=== PATIENT | male | born 2000 | race Two or more races ===

== ENCOUNTER 2024-02-20 19:54 | Inpatient (IN) | payer OTHER ==
[2024-02-20 20:39] VITALS: BMI 31.9
[2024-02-20] MEDS ORDERED: NALOXONE (NARCAN) HCL 4 MG/0.1 ML SPRAY NS PRN (21:31)
[2024-02-20] MEDS ORDERED: BENZOCAINE/MENTHOL (CHLORASEPTIC ) LOZENGE MM PRN (21:31)
[2024-02-20] MEDS ORDERED: BENZONATATE 200 MG CAPSULE PO PRN (21:31)
[2024-02-20] MEDS ORDERED: MAGNESIUM HYDROX 2400MG/30ML ORAL SUSPENSION 30 ML CUP PO PRN (21:31)
[2024-02-20] MEDS ORDERED: MAG HYDROX/AL HYDROX/SIMETH 30 ML UNIT-DOSE CUP PO PRN (21:31)
[2024-02-20] MEDS ORDERED: guaiFENesin 600 MG TABLET.ER (FP) PO PRN (21:31)
[2024-02-20] MEDS ORDERED: ACETAMINOPHEN 325 MG TABLET (FP) PO PRN (21:31)
[2024-02-20] MEDS ORDERED: LOPERAMIDE HCL 2 MG CAPSULE PO PRN (21:31)
[2024-02-20] MEDS ORDERED: IBUPROFEN 400 MG TABLET (FP) PO PRN (21:31)
[2024-02-20] MEDS ORDERED: NALOXONE HCL 0.4 MG/ML VIAL IM PRN (21:31)
[2024-02-20] MEDS ORDERED: POLYETHYLENE GLYCOL (HEALTHYLAX) 3350 17 GM PACKET PO PRN (21:31)
[2024-02-20] MEDS ORDERED: MELATONIN 5 MG TABLETS ONE (22:13)
[2024-02-20] MEDS: MELATONIN 5 MG TABLETS PO SCH (22:14)
[2024-02-20] MEDS: THIAMINE 100 MG TABLET PO SCH (22:14)
[2024-02-20] MEDS ORDERED: hydrOXYzine PAMOATE 25 MG CAPSULE (FP) PO ONE (22:14)
[2024-02-20] MEDS: hydrOXYzine PAMOATE 25 MG CAPSULE (FP) PO PRN (22:15)
[2024-02-21] MEDS ORDERED: TUBERCULIN PPD 5 TU/0.1ML SYRINGE (IN PATIENT USE ONLY) ID ONE (01:33)
[2024-02-21] MEDS ORDERED: TUBERCULIN PPD 5 TU/0.1ML VIAL ID ONE (09:01)
[2024-02-21] MEDS: PRENATAL VITAMINS W/ FOLIC ACID TABLET (FP) PO SCH (10:14)
[2024-02-21] MEDS: TUBERCULIN PPD 5 TU/0.1ML SYRINGE (IN PATIENT USE ONLY) ID ONE (10:14)
[2024-02-21] MEDS: NICOTINE 14 MG/24 HOURS TOPICAL PATCH TD SCH (10:14)
[2024-02-21 12:21] LABS: HEMATOCRIT 45.3 % (35.4-49); HEMOGLOBIN 14.5 GM/dL (11.7-16.9); MCH 27.3 pg (25.7-33.7); MEAN CELL VOLUME 85.2 fl (80-96); MEAN PLT VOLUME 9.9 fl (7.5-11.1); PLATELET COUNT 172 10^3/uL (134-434); RBC 5.32 M/mm3 (4.00-5.60); RDW 14.7 % (11.9-15.9); WHITE BLOOD COUNT 6.9 K/mm3 (4.0-10.0)
[2024-02-21 12:25] LABS: POTASSIUM 3.9 mmol/L (3.5-5.1)
[2024-02-21 12:31] LABS: ALBUMIN 3.8 g/dl (3.4-5.0); CALCIUM 9.6 mg/dL (8.5-10.1)
[2024-02-21 12:33] LABS: CREATININE 1.1 mg/dL (0.55-1.3)
[2024-02-21 12:34] LABS: BLOOD UREA NITROGEN 8.6 mg/dL (7-18)
[2024-02-21 12:36] LABS: BILIRUBIN,TOTAL 0.8 mg/dL (0.2-1)
[2024-02-21] MEDS: NICOTINE POLACRILEX 2 MG GUM BUC PRN (12:46)
[2024-02-22] MEDS: ZIPRASIDONE 20 MG CAPSULE PO SCH (00:07)
[2024-02-22] MEDS: TOPIRAMATE 25 MG TABLET PO SCH (00:07)
[2024-02-25] MEDS ORDERED: BUPRENORPHINE HCL 150 MCG, BUPRENORPHINE HCL 75 MCG BC PRN (12:40)
[2024-02-25] MEDS: BUPRENORPHINE HCL 150 MCG, BUPRENORPHINE HCL 75 MCG BC ONE (13:18)
[2024-02-25] MEDS ORDERED: cloNIDine HCL 0.1 MG TABLET PO PRN (16:40)
[2024-02-26] MEDS ORDERED: BUPRENORPHINE HCL 150 MCG, BUPRENORPHINE HCL 75 MCG BC PRN
[2024-02-26] MEDS: BUPRENORPHINE HCL 150 MCG, BUPRENORPHINE HCL 75 MCG BC SCH (07:00)
[2024-02-27] MEDS: BUPRENORPHINE HCL 450 MCG FILM BC SCH (06:54)
[2024-02-28] MEDS: BUPRENORPHINE/NALOXONE 4 MG/1 MG FILM PACKET SL SCH (06:16)
[2024-02-28] MEDS: IBUPROFEN 600 MG TABLET (FP) PO PRN (11:24)
[2024-02-28] MEDS: HEPATITIS A VIRUS VACCINE/PF 1440 UNIT/1 ML IM ONE (15:41)
[2024-02-28] MEDS: TOPIRAMATE 25 MG TABLET PO ONE (21:31)
[2024-02-29] MEDS: BUPRENORPHINE/NALOXONE 8 MG/2 MG FILM PACKET SL SCH (05:40)
[2024-02-29] MEDS ORDERED: BUPRENORPHINE/NALOXONE 8 MG/2 MG FILM PACKET SL ONE (06:00)
[2024-02-29 06:53] VITALS: BP 140/82; PULSE 61; RESP 17; TEMP 97.3
[2024-02-29] MEDS: TOPIRAMATE 25 MG TABLET PO SCH (09:40)
== END 2024-02-29 12:49 | disposition home or self-care (01) | DRG 772 ==
LOC: YASAS 19:54 → Y3W 22:06
PROVIDERS: ADMIT Allergy & Immunology; ATTEND Psychiatry & Neurology Pain Medicine
PROC: HZ42ZZZ Group Counseling for Substance Abuse Treatment, Cognitive-Behavioral (ICD-10-PCS; principal; 2024-02-20)
DX: F11.20 Opioid dependence, uncomplicated (principal); F14.20 Cocaine dependence, uncomplicated; F12.20 Cannabis dependence, uncomplicated; F17.210 Nicotine dependence, cigarettes, uncomplicated; F19.27 Other psychoactive substance dependence with psychoactive substance-induced persisting dementia; F31.9 Bipolar disorder, unspecified; F41.9 Anxiety disorder, unspecified; J45.20 Mild intermittent asthma, uncomplicated; M54.50 Low back pain, unspecified; G89.29 Other chronic pain
CPT/HCPCS: 36415; 80053; 80305; 80307; 82962; 85027; 86780; 87811; 90632; 93005; 93010